=== PATIENT | female | born 1950 | race Caucasian/White ===

== ENCOUNTER → 2018-05-09 10:36 | Outpatient (CLI) | payer MEDICARE, OTHER, SELFPAY ==
--- NOTE | 2018-05-09 | DI.CT.S_ITS ---
PROCEDURE: CT LE LT WO/W CON INDICATIONS: SPRAIN OF OTHER LIGAMENT OF LEFT ANKLE TECHNIQUE: After the administration of intravenous contrast, 3 mm axial sections acquired of the left ankle, with coronal and sagittal reformats. COMPARISON: [facility], CR, XR ANKLE 3+ VIEWS LEFT, 04/13/2018, 20:28. [facility], CR, XR FOOT 3+ VIEWS LEFT, 04/17/2018, 17:08. [facility], CR, XR ANKLE 3 VIEWS WEIGHT BEARING LEFT, 04/17/2018, 17:10. FINDINGS: Image quality: Excellent. Bones: Examination of left ankle osseous structures shows small avulsion fracture involving posterior lateral corner of the distal medial malleolus with tiny displaced bony fragment. There is also likely avulsion fracture involving anterolateral periphery of distal lateral malleolus with anteriorly displaced bony fragment. Avulsion injury involving dorsal and lateral aspect of anterior talus is seen adjacent to the talonavicular joint with small dorsally displaced fragment. Avulsion injury involving medial cortex of the mid to posterior talus is seen adjacent to the posterior subtalar joint with posterior and laterally medially displaced bony fragments. There is also suggestion of small avulsion fracture involving inferior lateral corner of proximal navicular bone near its articulation with calcaneus. Small bony fragment is also seen adjacent to inferior lateral aspect of proximal cuboid adjacent to the calcaneocuboid joint, suggestive of age indeterminate avulsion injury. No other fracture or dislocation is seen. Mild osteoarthritic changes throughout the ankle and hindfoot joints are seen. A well-defined plantar calcaneal enthesophyte is noted. No gross bone erosive changes are noted. Soft tissues: There is significant subcutaneous soft tissue edema and swelling around ankle joint and extending to predominantly dorsal and lateral aspect of mid foot and hindfoot. There is suggestion of a moderate amount of joint effusion within tibiotalar joint. Ill-defined lobulated fluid collection anterolateral to the ankle joint and extending to lateral aspect of distal fibular shaft is seen with mild peripheral contrast enhancement and measures up to 5.9 x 1.8 x 9.3 cm in its largest AP, transverse and craniocaudal dimensions, concerning for abscess collection in anterolateral ankle soft tissue. Septic joint cannot be excluded as this fluid collection is seen possibly communicating with tibiotalar joint space. Plantar fascia is grossly intact. Extensor, flexor, peroneus and Achilles tendon are grossly intact with no evidence of full-thickness rupture. Evaluation of ankle ligaments are limited on this CT study. No significant widening of distal tibial fibula syndesmosis is seen. IMPRESSION: 1. Multiple age-indeterminate small avulsion fractures involving medial malleolus, lateral malleolus, anterior aspect of talus, medial cortex of talus, inferior lateral corner of proximal navicular bone, as well as inferior lateral aspect of proximal cuboid bone. 2. Moderate amount of joint effusion. Soft tissue swelling around ankle, hindfoot and midfoot predominantly over the anterior lateral aspect of ankle joint and dorsal lateral aspect of mid foot and hindfoot. No defined peripherally enhancing fluid collection anterior lateral to ankle joint and measures approximately 5.9 x 1.8 x 9.3 cm in size with possible communication to the tibiotalar joint. Finding is concerning for cellulitis with subcutaneous soft tissue abscess collection and possible septic joint. No definite bony erosive changes are noted at this time to suggest osteomyelitis. 3. No full-thickness ankle tendon rupture. Ankle ligament evaluation is limited due to CT technique. No widening of distal tibiofibular syndesmosis. Dictated by: Isaías Bee M.D. on 05/10/2018 at 9:54 Approved by: Isaías Bee M.D. on 05/10/2018 at 10:27
== END ==
PROVIDERS: Visit Provider Orthopaedic Surgery Foot and Ankle Surgery
DX: S82.842A Displaced bimalleolar fracture of left lower leg, initial encounter for closed fracture (principal); S93.492A Sprain of other ligament of left ankle, initial encounter; M25.472 Effusion, left ankle; S92.152A Displaced avulsion fracture (chip fracture) of left talus, initial encounter for closed fracture; S92.252A Displaced fracture of navicular [scaphoid] of left foot, initial encounter for closed fracture; S92.212A Displaced fracture of cuboid bone of left foot, initial encounter for closed fracture
CPT/HCPCS: 73702; Q9967

== ENCOUNTER 2018-05-11 09:12 | Day surgery (SDC) | payer MEDICARE, OTHER, SELFPAY ==
[2018-05-11] VITALS (15 sets, daily range): BP systolic 114–154; BP diastolic 42–85; PULSE 63–88; RESP 9–18; TEMP 36.2–36.7; O2SAT 96–100; BMI 41.8; BMI 41.7
--- NOTE | 2018-05-11 10:56 | PM.PREOP ---
Pre-operative Note Interval Note History & Physical reviewed/Exam performed by Physician: Yes Changes to H&P: No
--- NOTE | 2018-05-11 11:01 | P.OP_ITS ---
Operative Date/Time/Diagnoses Date of procedure: 05/11/18 Time of procedure: 11:15 Pre-op diagnosis: 1. Abscess of bursa, left ankle and foot icd: M71.072 2. Sprain ligament left ankle, subsequent encounter, ICD S93.492D 3. Sprain deltoid ligament left ankle subsequent encounter S93.422D 4. Nondisplaced fracture lateral malleolus left fibula ICD S82.65XD Post-op diagnosis: other (Infected hematoma left ankle) Procedure & Clinicians Procedure: 1. Incision and drainage, abscess, ankle, deep, left CPT code 28603 Same procedure as scheduled: Yes Indications: Patient is a 67-year-old female that sustained a complex ankle sprain several weeks ago. She had a medial and lateral ankle sprain with severe soft tissue injury resulting in multiple hemorrhagic and serous fracture blisters. She is on Coumadin for paroxysmal atrial fibrillation and her INR at the time of injury was approximately 4. She underwent immobilization and wound care and her fracture blisters resolved nicely. She continued to have some swelling at her anterior lateral ankle and then later developed cellulitis this improved on oral antibiotics there continued to be swelling at the anterior lateral ankle and a superficial ulceration forming. There is no draining pus but the collection was suspicious for hematoma versus abscess or infected hematoma. A CT scan with and without contrast demonstrated a fluid collection in the anterior lateral ankle suspicious for abscess or hematoma. The patient was indicated for incision and drainage the hematoma for decompression cultures and wound healing. Risks benefits and alternatives to the procedure were discussed with the patient and her partner in detail. These included but were not limited to infection, wound healing problems, need for additional procedures , need for antibiotics, DVT, PE, cardiac or pulmonary problems with general anesthesia and/or . Informed consent was obtained and signed in the office. Surgeon: Jada Hall Click Yes if Unassisted: Yes Anesthesia Type: General and Local Operative Notes Findings: Approximately 2 x 2 cm superficial ulceration over the anterior lateral ankle and a small 0.5 cm eschar just distal to this. Directly underneath of the ulceration and encompassing the anterior lateral ankle was a fluctuant area with a faint cellulitis. There was no tracking cellulitis or crepitus or sinus tract. An approximately 6 cm incision was made from proximal posterior to distal anterior over the distal fibula toward the 4th metatarsal base. This was directed just posterior to the ulceration to avoid this compromised tissue. Upon incision old hematoma was immediately evacuated. This was sent for culture and Gram stain. There was no gross purulence or malodor. The hematoma was localized over the anterior lateral ankle without proximal or distal tracking or tunneling. Once this was washed out and was closed over a Hemovac drain. Closure Type: primary Specimen(s): other (Left ankle hematoma for Gram stain and culture) Implants & Drains: Medium Hemovac drain Applied: other (Soft dressing) Estimated Blood Loss (mL): 25 Tourniquet time (min): 6 Procedure in detail: Patient was seen in the preoperative area her site of surgery marked and informed consent confirmed. Patient was then brought to the operating room by the anesthesia team and placed supine on the table. General anesthesia was administered. Left lower extremity was prepped and draped in the standard sterile fashion a contralateral SCD was in place. A well-padded thigh tourniquet was placed. A formal time-out procedure was performed confirming the patient's side and site of surgery and presence of informed consent. The patient did receive 1 g of vancomycin. She had been on previous oral antibiotics as well. All were in agreement. The left lower extremity was elevated for gravity exsanguination and the thigh tourniquet raised to 250 mm of mercury and stayed there for 6 min. Attention was turned to the left ankle. The anterior lateral ankle was swollen with the superficial ulceration placed. A approximately 6 cm incision was made just posterior to this extending from the distal fibula towards the 4th metatarsal. Sharp incision was taken down through the skin and subcutaneous tissue carefully. This opened directly onto a hematoma which was evacuated and cultures were sent. The hematoma was evacuated and the wound was irrigated with 3 L of saline. There was no gross purulence found. No malodor. Visualization and palpation there did not appear to be any communication with the ankle joint which is consistent with the patient's painless ankle range of motion preoperatively. A tourniquet was then released. Decision was made to place a Hemovac drain to avoid reaccumulation of the hematoma. A medium Hemovac was then placed and secured to the skin with a Tegaderm. The wound was closed in layers with 2 O PDS subcutaneously and 3 O nylon in the skin. Sterile dressing was placed with Xeroform gauze and Kerlix. All counts were correct. The patient was then woken from anesthesia and taken to the recovery room in good condition. There no immediate complications from this procedure. Complications: none Condition: stable Disposition: PACU Plan for aftercare: Patient will be placed in observation overnight for IV antibiotics while we await the wound cultures. Did discuss that the patient had received antibiotics over the last few weeks and therefore the cultures may not grow any specific organism, therefore after 2 doses of the of vancomycin unless another organism grows we would intend to send her out on 2 weeks of Bactrim double strength twice daily, which is what her cellulitis appeared to respond to earlier in the treatment course. The plan would be to keep the Hemovac in overnight and removed just prior to discharge tomorrow. She will restart her 5 mg warfarin tonight. She may be partial weight-bearing on the leg in a the boot --approximately 25%BW. She will continue with wound care for the ulceration that treatment and will just have dry dressing changes to her surgical incision. She will return to clinic in approximately 2 weeks for suture inspection possible removal.
[2018-05-11] MEDS: LACTATED RINGERS 1,000 ML 42 ML IV ×2 (11:09→14:14)
[2018-05-11] MEDS: VANCOMYCIN 1,000 MG/200 ML FROZ.PIGGY 200 MG IV ×2 (11:23→22:41)
[2018-05-11 11:28] LABS: Add Manual Diff / Slide Review NO; Basophils Percent Auto 1.2 % (0-2); Hematocrit 39.2 % (36-46); Hemoglobin 12.8 g/dL (12.0-16.0); Lymphocytes Percent Auto 28.4 % (25-40); Mean Corpuscular HGB Conc 32.8 % (30-36); Mean Corpuscular Hemoglobin 29.4 PG (26-34); Mean Corpuscular Volume 89.8 fL (80-100); Monocytes Percent Auto 11.9 % (3-14); Neutrophils Absolute Auto 2000 /uL (1500-7000); Neutrophils Percent Auto 57.5 % (50-75); Platelet Count 180 X10^3/uL (150-400); Red Blood Cell Count 4.36 X10^6/uL (4.0-5.2); Red Cell Distribution Width 15.4 % (11.6-14.8); White Blood Cell Count 3.4 X10^3/uL (4.5-11.0)
[2018-05-11 11:39] LABS: C-Reactive Protein Quant 0.5 mg/dL (<1.0)
[2018-05-11 11:42] LABS: Erythrocyte Sedimentation Rate 16 MM/HR (0-20)
--- NOTE | 2018-05-11 12:01 | SUR.OPER ---
Supine on padded OR bed, head on pillow, arms secured on padded arm boards at <90 degrees abduction, legs uncrossed, safety belt at thigh, tape over blanket over non operative legs. operative leg draped free.
[2018-05-11] MEDS: BUPIVACAINE 0.25% W/ EPI VIAL 50 ML INJ (12:03)
[2018-05-11] MEDS: fentaNYL 100 MCG/2 ML INJ 50 MCG IV ×4 (12:30→13:01)
--- NOTE | 2018-05-11 12:49 | SUR.PHASEI ---
Inr checked in pacu per Dr. Hall. INR 1.8. Dr. Hall notified.
--- NOTE | 2018-05-11 13:19 | SUR.PHASEI ---
Report called to JESSICA Thompson
[2018-05-11] MEDS: MORPHINE 2 MG/ML INJ 1.5 MG IV ×2 (13:55→16:06)
[2018-05-11] MEDS: OXYCODONE IR 5 MG TABLET PO ×4 (14:27→23:43)
--- NOTE | 2018-05-11 14:29 | SUR.PHASEI ---
Pt transferred to the floor, Report to Sam. VS stable. Boot in place. Belongings bag and glasses with patient. J-loop attached to IV, IV drsg changed. Call light within reach.
--- NOTE | 2018-05-11 14:29 | PC.NURSE ---
Pt admitted to floor around 130. Her is present and visiting in room. Pt has an yu wrap with hemovac that is putting out bloody drainage. Given 1.5mg of morphine and not effective for pain. Pt just given 5mg of oxycodone and she is resting. LR infusing through iv.
[2018-05-11] MEDS: ACETAMINOPHEN 325 MG TABLET 975 MG PO ×2 (14:53→20:23)
--- NOTE | 2018-05-11 16:10 | P.PN_ITS ---
Subjective Date Patient Seen: 05/11/18 Time Patient Seen: 16:05 Interval history: Postop day 0 left ankle infected hematoma evacuation. Exam Vital Signs (past 8 hours): - 05/11/18 10:53 05/11/18 12:24 05/11/18 12:29 Temperature 98.0 F 97.7 F Pulse Rate 72 85 75 Respiratory Rate 16 15 10 L Blood Pressure 136/66 131/72 140/75 Pulse Oximetry 98 98 99 05/11/18 12:34 05/11/18 12:39 05/11/18 12:54 Temperature Pulse Rate 69 69 69 Respiratory Rate 13 13 11 L Blood Pressure 147/78 H 143/75 H 131/71 Pulse Oximetry 96 96 97 05/11/18 13:10 05/11/18 13:19 05/11/18 13:30 Temperature 97.4 F L 97.1 F L Pulse Rate 66 66 73 Respiratory Rate 10 L 9 L 16 Blood Pressure 154/80 H 154/85 H 148/67 H Pulse Oximetry 96 97 100 05/11/18 14:00 05/11/18 14:30 Temperature Pulse Rate 63 63 Respiratory Rate 16 16 Blood Pressure 132/66 137/42 L Pulse Oximetry 100 98 Oxygen Delivery Method Room Air Oxygen Flow Rate 0 Objective Labs Result Diagrams: 05/11/18 11:17 Labs: Laboratory Results - last 24 hr 05/11/18 05/11/18 11:17 11:17 WBC 3.4 L RBC 4.36 Hgb 12.8 Hct 39.2 MCV 89.8 MCH 29.4 MCHC 32.8 RDW 15.4 H Plt Count 180 Neut % (Auto) 57.5 Lymph % (Auto) 28.4 [place] % (Auto) 11.9 Eos % (Auto) 1.0 L Baso % (Auto) 1.2 Neut # (Auto) 2000 ESR 16 C-Reactive Protein 0.5 Assessment & Plan (1) Traumatic hematoma of left lower leg with infection: Current visit: Yes Status: Acute (2) Sprain of ankle, left: Current visit: Yes Status: Acute Plan: Assessment/Plan Narrative: Patient had a severe left ankle sprain with multiple fracture blisters. Patient developed cellulitis and a presumably infected hematoma of the anterior lateral left ankle. Hematoma was drained in the operating room and washed out on 05/11/2018. Incision was closed over Hemovac drain. Plan: Partial weight-bearing no more than 25% in boot Keep incision dry. Patient will continue scheduled wound care--with Selene Springer for left ankle ulceration. May place new clean dressing to surgical incision with these changes. -Pull Hemovac drain on postop day 1 prior to discharge. -plan at discharge postop day 1 after a.m. vancomycin dose -discharged with Bactrim--see prescription on chart --discharged with Percocet--See prescription on chart -patient will resume home dosing of warfarin--patient and partner have been counseled on daily INR checks to monitor warfarin while on Bactrim. -follow-up has been scheduled at [facility] with Dr. Hall -early Gram stain cultures without growth--will plan discharge with Bactrim postop day 1 unless cultures come back with resistant organism. Do not need to hold discharge until final cultures. Quality VTE Deep Vein Thrombosis/Pulmonary Embolism Present on Admission: No
[2018-05-11] MEDS: WARFARIN 5 MG TABLET PO (17:29)
--- NOTE | 2018-05-11 18:05 | PT.IIE ---
Current Diagnoses Local infection of the skin and subcutaneous tissue, unspecified (05/11/18) Abscess of bursa, left ankle and foot (05/11/18) Contusion of left lower leg, initial encounter (05/11/18) Nondisplaced fracture of lateral malleolus of left fibula, subsequent encounter for closed fracture with routine healing (05/11/18) Sprain of unspecified ligament of left ankle, initial encounter (05/11/18) Sprain of deltoid ligament of left ankle, subsequent encounter (05/11/18) Sprain of other ligament of left ankle, subsequent encounter (05/11/18) Surgery Performed Operation Date: 05/11/18 10:45 Actual Procedures p I&D ankle abscess(Left) - Jada Hall MD Medical History (Last Updated 05/11/18 @ 08:26 by Estrella Drake RN) Abscess of bursa, left ankle and foot (Acute) Cellulitis (Acute) Nondisplaced fracture of lateral malleolus of left fibula (Acute) Paroxysmal A-fib (Acute) Sprain of deltoid ligament of left ankle (Acute) Sprain of other ligament of left ankle, subsequent encounter (Acute) Ulceration (Acute ~05/10/18) Physical Therapy Inpatient Evaluation/Re-Eval M1 PT/OT-IP Prior Functional Status Start: 05/11/18 17:25 Freq: NEEDED Status: Active Protocol: Document 05/11/18 16:00 (Rec: 05/11/18 18:05 [email or web address]) Medical Review Prior Functional Status Medical History Reviewed Yes Communication No deficits noted Mobility and Gait Pt was an independent ambulator at home and community without AD prior to injury. Pt then used w/c for home and community mobility and able to transfer herself to chair with stand pivot and counter/grab bar independently . She also report she has difficulty sit to stand from a lower chair since injury who requires to use counter for extra support. Activities of Daily Living and IADL's Pt was independent for all ADLs and IADLs prior to injury . However, pt's partner states pt used w/c, commode, and shower chair for her ADLs and she only need help sometimes for showering. Social History Household Members spouse Living Arrangements House Number of Floors (Floors) Two Floors Number of Stairs To Enter/Railing? Ramp stair in house to get to second floor. But pt stays on main floor at all times. Home Environment Standard Height Toilet Home Equipment Front Wheel Walker Four Wheel Walker Crutches Manual Wheelchair Bedside Commode Raised Toilet Seat w/Armrests Shower Seat without Backrest Employment Status Retired Additional Social History Comment Pt lives with her partner at a 2 story home with a RAMP to enter. Pt stays on main floor with access to all her basic needs. Pt's partner works as a radio time salesperson RN in ICU who was her primary daycare manager since injury. She states pt was able to live independently at home while she was at work since their home is well equipped with assistive devices. Pt was also very active prior to injury that she usually goes to her water aerobic and jones dancing class during the week . M2 PT-IP Current Condition Start: 05/11/18 17:25 Freq: NEEDED Status: Active Protocol: Document 05/11/18 16:00 (Rec: 05/11/18 18:05 [email or web address]) Physical Therapy Current Condition Current Condition Evaluation Date 05/11/18 Treatment Diagnosis Postop day 0 left ankle infected hematoma evacuation, difficulty in walking Onset Date 05/11/18 Precautions Brace walker boot with hemovac Weight Bearing Status Weight Bearing Status Partial Weight Bearing Allowed Weight Bearing Amount (enter % up to 25 % or #) (%) M3 PT-IP Subjective Start: 05/11/18 17:25 Freq: NEEDED Status: Active Protocol: Document 05/11/18 16:00 (Rec: 05/11/18 18:05 [email or web address]) Subjective Physical Therapy Visit Type Type Initial Evaluation Visit Start Time 16:00 Visit Stop Time 16:50 Total Visit Minutes 50 Notes Pt agreeable to mobilize with PT. Pt's partner at bedside. Pt c/o 5/10 pain at L foot. Number of WINDOWS 7 DEPLOYMENT LEAD Visits 0 Physical Therapy Visit Comments Patient Comments Im not sure if i could hop with the walker. Patient Goals To understand how to hop with walker prior to d/c to return home and get home health for overall strengthening Therapy Pain Assessment Pain When Pain Assessed At Rest Pain Present Pain Present Pain Reported Location Left Foot Intensity 5 Scale Used Numeric (1 - 10) Description Aching Pain Management Techniques Timing of Activity with Medications M4 PT-IP Mobility and Gait Start: 05/11/18 17:25 Freq: NEEDED Status: Active Protocol: Document 05/11/18 16:00 (Rec: 05/11/18 18:05 [email or web address]) PT-Bed Mobility Assessment Supine to Sit Supine to Sit Minimal Assistance 1 Person Assistance Head of Bed Elevated Bedrails Sit to Supine Sit to Supine Minimal Assistance 1 Person Assistance Head of Bed Elevated Bedrails Scooting Scooting to Edge of Bed Standby Assistance Scooting Up and Down in Bed Standby Assistance PT-Transfer Assessment Sit to and From Stand Sit to and from Stand Contact Guard Assistance 1 Person Assistance Use of Upper Extremities Equipment Transfer Assistive Device Bed Rail Gait Belt Front Wheeled Walker Orthotic/Prosthetic Devices or Brace: Yes Transfers Transfer Destination Bed Bedside Commode Transfer Technique Stand Pivot Transfer Ability Level of Assist Contact Guard Assistance 1 Person Assistance Comments Mobility Comments pre transfer BP = 127/57 HR 75 post transfer BP 128/63 HR 88 Pt performed supine to sit at EOB with min A on R UE to pivot. She then transferred herself from EOB to bedside commode (her R side) with CGA 1pa FWW. Pt requires mod cues to use stagger stance to avoid excessive WB on L foot. Pt refused to transfer to bedside chair due to its lowered seat level. Pt then transferred from commode back to bed with her partner who demonstrated safe stand pivot transfer. Gait Assessment Gait Gait Assistance Required: Contact Guard Assist Distance (Feet) 10 Able to Maintain Weight Bearing Status Yes During Gait Assistive Devices Assistive Device Gait Belt Standard Walker Orthotic/Prosthetic Devices or Brace: Yes Gait Deviations General Gait Pattern Decreased Stride Length Decreased Feet Clearance Factors Limiting Gait Function Factors Limiting Gait Function Decreased Activity Tolerance Decreased Strength Incoordination Limited Range of Motion Pain Comments Gait Comments Pt and CG education on hopping with FWW prior to amb. Pt then amb from EOB to the other side of the bed with CGA and max cues to propel FWW first before hopping. Pt had to rest at standing after 5 feet due to fatigue on the R LE but she was able to cont and return to bed with CGA 1pa. Pt did not appear signs of acute distress and LOB. Pt requested to sit EOB for dinner. call light within reach Stair Climbing Assessment Comments Stair Climbing Comments did not attempt PT-Balance Assessment Sitting Balance and Reactions Static Sitting Balance Ability Normal Dynamic Sitting Balance Ability Normal Standing Balance and Reactions Static Standing Balance Ability Good Dynamic Standing Balance Ability Good M5 PT-IP Objective Assessments Start: 05/11/18 17:25 Freq: NEEDED Status: Active Protocol: Document 05/11/18 16:00 (Rec: 05/11/18 18:05 [email or web address]) Orientation Orientation/Cognition Level of Alertness Alert Orientation Name Age Birthday Month Date Year Day of Week Place Situation Language Function Ability No Deficits Noted Safety Awareness Understands Safety Issues Memory Description No Deficits Noted Gross Range of Motion Upper Extremity ROM Assessment Within Functional Limits Lower Extremity ROM Assessment Left Impaired Impairments with walker boot Strength Upper Extremity Strength Assessment Within Functional Limits Lower Extremity Strength Assessment Left Impaired Coordination Assessment Gross Coordination Gross Coordination WNL Sensation Assessment Sensation Gross Sensation WNL Muscle Tone Muscle Tone WNL Yes M6 PT-IP Treatment Start: 05/11/18 17:25 Freq: NEEDED Status: Active Protocol: Document 05/11/18 16:00 HH (Rec: 05/11/18 18:05 [email or web address]) Physical Therapy Treatment Exercises Exercises Gluteal Sets Quad Sets Straight Leg Raises Education Education Provided Precautions Weight Bearing Status Post-Op Packet Safety M7 PT-IP Assessment and Plan Start: 05/11/18 17:25 Freq: NEEDED Status: Active Protocol: Document 05/11/18 16:00 (Rec: 05/11/18 18:05 [email or web address]) PT Summary Assessment and Plan Potential Rehabilitation Potential Excellent Status of Condition at Evaluation Stable Summary Impairments Strength Bed Mobility Transfers Gait Activity Tolerance Assessment Summary Pt is a pleasant 67 yo female Postop day 0 left ankle infected hematoma evacuation. Pt's partner at bedside upon assessment who is very supportive and cont to be her primary CG. Pt and her partner both demonstrate a good understanding transfer techniques with different assistive device during tx session today. Pt is also able to amb with FWW with a hopping pattern. However, pt does show insufficient activity tolerance to primarily WB on her UEs and R LE during mobility. In my professional opinion, pt will benefit from receiving Home Health to cont improve her overall functional mobility and strength. Goals Bed Mobility Goal Independent Transfer Goal Independent Front Wheeled Walker Gait Goal Contact Guard Assistance Front Wheel Walker Gait Distance 30 Days to Meet Goals 3 Frequency of Treatment Frequency Of Treatment Twice a Day Treatment Plan Physical Therapy Treatment Plan Bed Mobility Training Transfer Training Gait Training Therapeutic Exercise Balance Retraining Post Op Education Discharge Planning Hot or Cold Pack Other Recommendations and Next Treatment educate pt and CG for her PWB Focus status again (25%) check wheelchair transfer to commode and chair bed mob, transfer and gait training as tolerated Recommendations To Nursing Amount of Assist Needed 1 Person Assist Discharge Recommendations PT Discharge Recommendations Home Home Health
[2018-05-11] MEDS: DOCUSATE 100 MG CAPSULE PO (20:23)
[2018-05-11] MEDS: FLECAINIDE 100 MG TABLET 50 MG PO (20:24)
[2018-05-11] MEDS: GABAPENTIN 300 MG CAPSULE PO (20:24)
[2018-05-12] MEDS: MORPHINE 2 MG/ML INJ 1.5 MG IV ×3 (01:45→06:28)
[2018-05-12] MEDS: OXYCODONE IR 5 MG TABLET PO ×3 (03:17→12:25)
[2018-05-12 03:30] VITALS: BP 108/62; PULSE 67; RESP 18; TEMP 36.4; O2SAT 94
[2018-05-12 05:36] LABS: Hematocrit 34.1 % (36-46); Hemoglobin 11.3 g/dL (12.0-16.0); Mean Corpuscular HGB Conc 33.2 % (30-36); Mean Corpuscular Volume 90.4 fL (80-100); Platelet Count 146 X10^3/uL (150-400); Red Blood Cell Count 3.77 X10^6/uL (4.0-5.2); Red Cell Distribution Width 14.9 % (11.6-14.8); White Blood Cell Count 4.2 X10^3/uL (4.5-11.0)
[2018-05-12 05:37] LABS: Prothrombin Time 22.7 SECONDS (10.1-12.7)
[2018-05-12 07:20] VITALS: BP 125/53; PULSE 63; RESP 16; TEMP 36.5; O2SAT 95
[2018-05-12] MEDS: DOCUSATE 100 MG CAPSULE PO (08:27)
[2018-05-12] MEDS: ACETAMINOPHEN 325 MG TABLET 975 MG PO (08:28)
[2018-05-12] MEDS: FLECAINIDE 100 MG TABLET 50 MG PO (08:28)
--- NOTE | 2018-05-12 09:52 | PC.NURSE ---
Addendum entered by Jasmine Collins R.N. 05/12/18 10:28: Pt up to shower, gait steady. Back to bed sitting at edge, c/o nausea. Given 4mg oral zofran. Original Note: Boot and dressing removed with VINCENT Reed. No drainage or redness noted. Hemovac removed, incision covered with two 4x4's and wrapped with kerlex and yu. Boot placed back on. Pt up to shower.
[2018-05-12] MEDS: VANCOMYCIN 1,000 MG/200 ML FROZ.PIGGY 200 MG IV (10:10)
[2018-05-12] MEDS: ONDANSETRON 4 MG ODT PO (10:26)
--- NOTE | 2018-05-12 10:27 | PM.DS.1 ---
History of Present Illness Date Patient Seen: 05/12/18 Time Patient Seen: 10:28 Chief complaint: ankle [id number] Narrative: Hospital day 2, postop day 1 following left ankle I and D of hematoma and abscess by Dr. Hall. Patient able to rest off and on during the night. Pain controlled with oxycodone. G stain from the wound noted no organisms and occasional WBC. Culture is still pending. Patient is on her 2nd dose of vancomycin this morning. Plan is to discharge home on Bactrim DS b.i.d. x2 weeks. She is going to [facility] for wound care of her ankle. She does have Hemovac in place which was to be DC today. She has been seen by physical therapy. She is to be partial weight-bearing 25% to the left leg wearing boot x2 weeks. Discharge Providers Consults: 05/11/18 13:44 Consult to Discharge Planning Routine Comment: Plan DC home tomorrow after a.m. vancomycin dose Consult to Physical Therapy Evaluate & Treat Comment: Physician Instructions: Evaluate and Treat Consult to Respiratory Therapy Evaluate & Treat Comment: Physician Instructions: Evaluate and treat Discharge provider: Madi Reed PA-C Discharge Date: 05/12/18 Summary Discharge Diagnosis: Status post left ankle I and D Hospital Course: Patient brought to hospital on 03/01/2019 for above noted surgery. She remained stable overnight. Hemovac was discontinued on postop day 1 and dressing changed. She was discharged home on postop day 1. Status at Discharge Cognitive/behavioral status at discharge: Alert, oriented no acute distress. Functional status at discharge: uses cane/walker Overall status at discharge: other (Limit weight-bearing to left leg 25% in boot.) Time Spent with Patient Less than 30 minutes Exam Vital Signs (past 8 hours): - 05/12/18 03:30 05/12/18 07:20 Temperature 97.6 F 97.7 F Pulse Rate 67 63 Respiratory Rate 18 16 Blood Pressure 108/62 125/53 L Pulse Oximetry 94 95 Oxygen Delivery Method Room Air Oxygen Flow Rate 0 Narrative Exam Narrative: Left leg. Boot and dressing removed. No signs of infection or inflammation or swelling. Good pulses and sensation to her foot. Hemovac drain was DC and Tegaderm dressing placed. Xeroform gauze was left in place to the exterior wound and dry gauze dressing applied. Placed back in her boot. Objective Labs Result Diagrams: 05/12/18 05:16 Labs: Laboratory Results - last 24 hr 05/11/18 05/11/18 05/12/18 11:17 11:17 05:16 WBC 3.4 L 4.2 L RBC 4.36 3.77 L Hgb 12.8 11.3 L Hct 39.2 34.1 L MCV 89.8 90.4 MCH 29.4 30.0 MCHC 32.8 33.2 RDW 15.4 H 14.9 H Plt Count 180 146 L Neut % (Auto) 57.5 Lymph % (Auto) 28.4 Sharkey % (Auto) 11.9 Eos % (Auto) 1.0 L Baso % (Auto) 1.2 Neut # (Auto) 2000 ESR 16 PT INR C-Reactive Protein 0.5 05/12/18 05:16 WBC RBC Hgb Hct MCV MCH MCHC RDW Plt Count Neut % (Auto) Lymph % (Auto) Sharkey % (Auto) Eos % (Auto) Baso % (Auto) Neut # (Auto) ESR PT 22.7 H INR 2.0 H C-Reactive Protein Discharge Plan Discharge Plan Patient Disposition: Home Discharge comment: Patient will be limited weight-bearing left leg 25% and walking boot. Continue with wound care at [facility]. Keep left ankle area clean and dry. Discharge Med Rec/Prescriptions Prescriptions: New sulfamethoxazole-trimethoprim [Bactrim DS] 800-160 mg tablet 1 tab PO BID Qty: 28 RF: 0 oxycodone-acetaminophen [Percocet] 5-325 mg tablet 1 tab PO Q4H PRN (Reason: pain) Qty: 30 RF: 0 acetaminophen 325 mg Tablet 975 mg PO TID Qty: 30 RF: 0 docusate sodium 100 mg Capsule 100 mg PO BID Qty: 30 RF: 0 ondansetron 4 mg Tablet,Disintegrating 4 mg PO Q4HR PRN (Reason: Nausea And Vomiting) Qty: 6 RF: 0 warfarin [Coumadin] 5 mg Tablet 5 mg PO 1700 Qty: 30 RF: 0 Continue flecainide 50 mg Tablet 50 mg PO Q12H RF: 0 gabapentin 300 mg Capsule 300 mg PO BEDTIME RF: 0 Changed warfarin 10 mg Tablet 5 mg PO DAILY Qty: 0 RF: 0 Discontinued sulfamethoxazole-trimethoprim [Bactrim DS] 800-160 mg Tablet 1 tab PO Q12H RF: 0 oxycodone-acetaminophen [Percocet] 5-325 mg Tablet 1 tab PO Q4H PRN (Reason: Pain) RF: 0 cephalexin [Keflex] 500 mg Capsule 500 mg PO Q6H PRN (Reason: Cellulitis) RF: 0 No Action MediHoney (shaina alginate-honey) RF: 0 Follow up/Referrals: Jada Hall MD [Physician] - (05/17/2018 10:[address]) Discharge Orders: Discharge (Order); Ordered 05/12/18 Ordered By: Madi Reed Provider Discharge Instructions Diet: Diet as Tolerated Activity: Partial weight-bearing up to 25% in boot. Gentle ankle range of motion out of boot 3 times a day. Keep incision dry and covered-- Skin/Wound/Dressing Care Report to your healthcare provider any signs of infection, such as:: chills, fever, night sweats, increased pain, unusual drainage and unusual redness Other wound treatment: Keep incision dry and covered. May change dressing as needed for wound care. Patient to continued standard wound care with Jeremy for ulceration Visit Report/Discharge Packet Stand Alone Forms: Surgery Discharge Discharge Data Attending Provider: Jada Hall Quality VTE Deep Vein Thrombosis/Pulmonary Embolism Present on Admission: No
[2018-05-12 11:41] VITALS: BP 128/63; PULSE 75; RESP 16; TEMP 36.6; O2SAT 97
--- NOTE | 2018-05-12 11:52 | PT.IPTN ---
Current Diagnoses Local infection of the skin and subcutaneous tissue, unspecified (05/11/18) Abscess of bursa, left ankle and foot (05/11/18) Contusion of left lower leg, initial encounter (05/11/18) Nondisplaced fracture of lateral malleolus of left fibula, subsequent encounter for closed fracture with routine healing (05/11/18) Sprain of unspecified ligament of left ankle, initial encounter (05/11/18) Sprain of deltoid ligament of left ankle, subsequent encounter (05/11/18) Sprain of other ligament of left ankle, subsequent encounter (05/11/18) Surgery Performed Operation Date: 05/11/18 10:45 Actual Procedures p I&D ankle abscess(Left) - Jada Hall MD Physical Therapy Treatment Note M2 PT-IP Current Condition Start: 05/11/18 17:25 Freq: NEEDED Status: Active Protocol: Document 05/11/18 16:00 (Rec: 05/11/18 18:05 [id number]) Physical Therapy Current Condition Current Condition Evaluation Date 05/11/18 Treatment Diagnosis Postop day 0 left ankle infected hematoma evacuation, difficulty in walking Onset Date 05/11/18 Precautions Brace walker boot with hemovac Weight Bearing Status Weight Bearing Status Partial Weight Bearing Allowed Weight Bearing Amount (enter % up to 25 % or #) (%) M3 PT-IP Subjective Start: 05/11/18 17:25 Freq: NEEDED Status: Active Protocol: Document 05/12/18 10:05 [email or web address] (Rec: 05/12/18 11:52 [email or web address] [id number]) Subjective Physical Therapy Visit Type Type Patient Refusal Notes Pt refused states that she just finished with a shower and D/C home today. She states no need for PT. Recommendations To Nursing Amount of Assist Needed 1 Person Assist Discharge Recommendations PT Discharge Recommendations Home Home Health
== END 2018-05-12 13:03 | disposition home or self-care (01) ==
LOC: OR 13:11 → AC 13:37
PROVIDERS: Visit Provider Orthopaedic Surgery Foot and Ankle Surgery
PROC: (CPT 27603; principal; 2018-05-11 10:45)
DX: L76.32 Postprocedural hematoma of skin and subcutaneous tissue following other procedure (principal); L97.321 Non-pressure chronic ulcer of left ankle limited to breakdown of skin; I48.0 Paroxysmal atrial fibrillation; Z79.01 Long term (current) use of anticoagulants
CPT/HCPCS: 27603; 36415; 85025; 85027; 85610; 85651; 86140; 87070; 87205; 97162; 97530; J2270; J2405; J2704; J3010; J3370

== ENCOUNTER 2022-06-03 10:20 | Day surgery (SDC) | payer MEDICARE, OTHER, SELFPAY ==
[2018-05-11 13:57] VITALS: BMI 41.7
[2022-06-02 15:02] VITALS: BMI 35.2
[2022-06-03] VITALS (8 sets, daily range): BP systolic 125–143; BP diastolic 46–69; PULSE 60–80; RESP 9–16; TEMP 35.7–36.1; O2SAT 95–100; BMI 37.5
--- NOTE | 2022-06-03 | PATH_ITS ---
[facility] Accession Number: [id number] No. of containers..02 Tissue . 01 Material submitted: . PART A: endometrium - ENDOMETRIAL CURETTINGS PART B: endocervix - ENDOCERVICAL CURETTINGS . 01 Diagnosis: A. Endometrium, Curettage: Superficial strips of endometrial epithelium; please see comment. Strips of endocervical epithelium with no diagnostic abnormality. No evidence of atypical hyperplasia or malignancy. . B. Endocervix, Curettage: Strips of endocervical epithelium with no diagnostic abnormality. No evidence of squamous intraepithelial lesion or malignancy. V 06/08/2022 1835 Local . 01 Comment: A. The findings in the endometrial biopsy are suggestive of endometrial atrophy. . B. The findings in the endocervical curettage correlate with recent cervical cytology ([id number], 2021). . 01 Electronically signed: . oP Nettles MD, PhD, Pathologist NPI- [id number] . 01 Gross description: . Part A: ENDOMETRIAL CURETTINGS: Received in formalin are minute fragments of mucoid and hemorrhagic material measuring 2.7 x 1.2 x 0.1 cm in aggregate. Submitted in toto in 1 cassette. Part B: ENDOCERVICAL CURETTINGS: Received in formalin are minute fragments of mucoid and hemorrhagic material measuring 2.0 x 1.8 x 0.1 cm in aggregate. Submitted in toto in 1 cassette. /CPE 06/04/2022 1006 Local . 01 Pathologist provided ICD-10: N95.0 . 01 CPT . 409647, [id number] Specimen Comment: A courtesy copy of this report has been sent to [phone] Performed at: [address] [place] [address], [place], [place] [id number] MD Braden Childs MD Phone: [phone]
[2022-06-03] MEDS: LACTATED RINGERS 1,000 ML 42 ML IV ×2 (11:17→13:19)
--- NOTE | 2022-06-03 12:46 | PM.PREOP ---
Pre-operative Note COVID-19 COVID-19 status: Negative Criteria for continued procedure: Non-surgical alternatives not available or appropriate per current SOC Interval Note History & Physical reviewed/Exam performed by Physician: Yes Changes to H&P: No
--- NOTE | 2022-06-03 13:12 | SUR.OPER ---
Lithotomy on padded OR bed, head on pillow, arms secured on padded arm boards at <90 degrees abduction. Legs secured in padded yellow fins stirrups.
--- NOTE | 2022-06-03 13:29 | P.OP_ITS ---
Operative Date/Time/Diagnoses Date of procedure: 06/03/22 Time of procedure: 12:55 Pre-op diagnosis: Postmenopausal bleeding Endometrial thickening on ultrasound Post-op diagnosis: same Procedure & Clinicians Procedure: Procedures Operation Date: 06/03/22 12:45 Actual Procedure Side Surgeon p Hysteroscopy w. D&C of uterus Brian Qureshi MD Indications: Lashay is a 71-year-old G0, LMP at age 57 who presents for evaluation due to postmenopausal bleeding which began 04/08/2022.? Patient does not recall when she went through menarche but did have regular predictable periods throughout her reproductive life.? She stopped having menses at age 57 and has not had any postmenopausal spotting or bleeding up until an episode on the 08 April 2022 and subsequently several episodes of light spotting.? Patient is not taking HRT and has never taken HRT.? Pelvic ultrasound performed at [facility] in [place], [place] on 04/22/2022 showed the uterus to be 6.0 x 2.6 x 4.8 cm with the endometrium measuring up to 18 mm in combined thickness.? Fluid is noted in the cervix and there was a suspected nabothian cyst.? The right ovary is within normal limits for age in the left ovary was not well seen.? There was no pathological free fluid in the pelvis. Options for evaluating the cause of her postmenopausal bleeding and endometrial thickening discussed at length.? Patient would not be comfortable having an endometrial biopsy performed without sedation and we discussed the relative pros and cons of endometrial sampling versus hysteroscopy with D&C.? After discussion of all options and the pros and cons, the patient has decided to proceed with hysteroscopy with possible biopsies and dilation and curettage of the uterus.? She presents today for her scheduled surgery. Surgeon: Brian Qureshi Anesthesia Type: General Operative Notes Findings: Normal endometrial cavity without localized abnormality. Diffuse atrophic changes. Closure Type: not applicable Specimen(s): endometrial curettings and other (Endocervical curettings) Estimated blood loss (mL): 10 Blood products transfused: none Procedure in detail: With the patient under satisfactory general anesthesia in the modified dorsal lithotomy position, vagina, perineum, and lower abdomen were prepped and draped in the usual manner for hysteroscopy/D&C. A pre-surgical safety time-out was then taken accordance with [facility] Main OR protocols. A bivalve specu lum was then inserted in the vagina and the cervix visualized. The anterior lip of the cervix was grasped with single-tooth tenaculum. An os finder was then utilized to identify the tract of the endocervical canal and once identified, the endocervical canal was sequentially dilated to 7 mm in diameter with Hegar dilators. Hysteroscope was then introduced into the endometrial cavity with saline as a distention medium and the endometrial cavity as well as the endocervical canal were carefully inspected no abnormalities were noted. Fractional dilation and curettage of the uterus was accomplished with sharp curette and separate specimens were submitted for endometrial curettings and endocervical curettings. The single-tooth tenaculum was then removed from the anterior lip of the cervix and no significant bleeding was noted. The speculum was then removed from the vagina and procedure terminated. The patient was then awakened from anesthesia and transferred to PACU for a period of observation and recovery after having tolerated the procedure well. Complications: none Post-operative Condition: stable Disposition: PACU Plan for aftercare: Routine postoperative care with follow-up planned for 2 weeks postop.
[2022-06-03] MEDS: ACETAMINOPHEN 325 MG TABLET PO (13:54)
[2022-06-03] MEDS: fentaNYL 100 MCG/2 ML INJ IV (13:58)
== END 2022-06-03 14:38 | disposition home or self-care (01) ==
PROVIDERS: PCP Registered Nurse; Referring Provider Obstetrics & Gynecology; Visit Provider Obstetrics & Gynecology
PROC: 0UDB8ZZ Extraction of Endometrium, Via Natural or Artificial Opening Endoscopic (ICD-10-PCS; CPT 58558; principal; 2022-06-03 12:45)
DX: N95.0 Postmenopausal bleeding (principal); R93.89 Abnormal findings on diagnostic imaging of other specified body structures
CPT/HCPCS: 58558; J2405; J2704; J3010

== ENCOUNTER → 2023-10-13 13:08 | Outpatient (CLI) | payer MEDICARE, OTHER, SELFPAY ==
[2018-05-11 13:57] VITALS: BMI 41.7
--- NOTE | 2023-10-13 13:14 | DI.NM.S_ITS ---
PROCEDURE: NM CATRINA PERF SPECT R&S PHARM Rest and pharmacological stress myocardial perfusion SPECT with gated imaging and ejection fraction RADIOPHARMACEUTICAL: 26.6 mCi Tc-99m tetrafosmin IV at rest and 25.1 mCi Tc-99m tetrafosmin IV at peak effect of pharmacological stress. [id number] was performed. INDICATIONS: OTHER FORM OF DYSPNIA TECHNIQUE: Radiopharmaceutical was injected at peak stress test, and also at rest. SPECT images were obtained. SPECT myocardial perfusion images were displayed in short axis, horizontal long axis, and vertical long axis views. Gated images were reviewed using [employer] software. COMPARISON: None. CARDIAC STRESS: A pharmacologic stress test was performed under the supervision of an attending staff, using an infusion of regadenoson 0.4 mg IV. Hemodynamic data: There is normal blood pressure and heart rate response to pharmacologic stress. Symptoms: The patient denied anginal chest pain. EKG: No diagnostic changes of ischemia; no ectopy. FINDINGS: Raw data: There is good myocardial uptake of radiotracer. No significant motion artifacts. Ycfd-uv-jwrxh ratio is 0.28 (normal is less than 0.38 for tetrafosmin tracer). Left ventricle function: Gated images demonstrate normal left ventricular wall thickening. No segmental wall motion abnormalities. No transient ischemic dilation; TID is 0.87 (normal less than 1.3). Left ventricle resting end diastolic volume is 110 mL. Left ventricle stress ejection fraction is > 75%; normal range is above 45%. Myocardial perfusion: There is a medium sized, mild intensity fixed inferolateral wall defect. No reversible perfusion defects. IMPRESSION: Low risk study. No evidence of pharmacologic induced ischemia. The fixed inferolateral wall defect is occurring in the setting of normal wall motion and hyperdynamic LV function likely due to attenuation artifact however prior subendocardial infarct cannot be ruled out. Normal LV size. Dictated by: Marilynn Porter D.O. on 10/18/2023 at 15:59 Approved by: Marilynn Porter D.O. on 10/18/2023 at 16:02
[2023-10-13 14:19] LABS: Add Manual Diff / Slide Review NO; Basophils Absolute Auto 0 /uL (0-100); Eosinophils Absolute Auto 100 /uL (0-450); Eosinophils Percent Auto 2.2 % (2-4); Hematocrit 39.1 % (36-46); Lymphocytes Absolute Auto 1200 /uL (1100-4500); Lymphocytes Percent Auto 31.1 % (25-40); Mean Corpuscular HGB Conc 33.2 % (30-36); Mean Corpuscular Volume 93.2 fL (80-100); Monocytes Absolute Auto 300 /uL (0-900); Monocytes Percent Auto 8.1 % (3-14); Neutrophils Absolute Auto 2200 /uL (1500-7000); Neutrophils Percent Auto 57.6 % (50-75); Platelet Count 121 X10^3/uL (150-400); Red Blood Cell Count 4.19 X10^6/uL (4.0-5.2); Red Cell Distribution Width 13.7 % (11.6-14.8); White Blood Cell Count 3.8 X10^3/uL (4.5-11.0)
[2023-10-13 14:33] LABS: BUN Creatinine Ratio 23.6 (6-22); Blood Urea Nitrogen 25 mg/dL (7-17); Calcium 9.1 mg/dL (8.4-10.2); Carbon Dioxide 32 mmol/L (22-32); Chloride 106 mmol/L (98-107); Cholesterol 160 mg/dL (140-199); Estimated Glomerular Filt Rate 56 mL/min (>60); Glucose 91 mg/dL (80-110); HDL Cholesterol 76 mg/dL (40-60); HEMOLYSIS < 15 (0-50); LDL Cholesterol Calculated 72 mg/dL (<100); Potassium 4.5 mmol/L (3.4-5.1); Sodium 141 mmol/L (137-145); Triglycerides 58 mg/dL (35-150)
== END ==
LOC: NUCM 13:10
PROVIDERS: PCP Registered Nurse; Referring Provider Internal Medicine Cardiovascular Disease; Visit Provider Internal Medicine Cardiovascular Disease
DX: R06.09 Other forms of dyspnea (principal); Z00.00 Encounter for general adult medical examination without abnormal findings
CPT/HCPCS: 36415; 78452; 80048; 80061; 85025; 93017; A9502; J2785

== ENCOUNTER 2025-02-23 14:06 | Emergency (ER) | payer MEDICARE, OTHER, SELFPAY ==
[2018-05-11 13:57] VITALS: BMI 41.7
[2025-02-23] VITALS (33 sets, daily range): BP systolic 117–176; BP diastolic 56–73; PULSE 53–86; RESP 9–47; TEMP 35.9–36.8; O2SAT 93–100; BMI 35.5
--- NOTE | 2025-02-23 14:11 | DI.RAD.S_ITS ---
PROCEDURE: XR CHEST 1V INDICATIONS: Chest Pain TECHNIQUE: One view of the chest was acquired. COMPARISON: None. FINDINGS: Surgical changes and devices: None. Lungs and pleura: Lungs are clear. No pleural effusions or pneumothorax. Mediastinum: Mediastinal contours appear normal. Mild cardiomegaly. Bones and chest wall: No suspicious bony lesions. Overlying soft tissues appear unremarkable. IMPRESSION: No acute cardiopulmonary abnormality is seen. Dictated by: Juan A Rizvi M.D. on 02/23/2025 at 15:09 Approved by: Juan A Rizvi M.D. on 02/23/2025 at 15:09
--- NOTE | 2025-02-23 14:11 | EKG_ITS ---
[facility] [address] [place] [address] Test Date: 2025-02-23 Pat Name: Lashay Zamora Department: [facility] Room: Gender: Female Knobber: : 1950 Requested By: Order Number: [id number] Reading MD: Dwain Chávez MD Measurements Intervals Bartlett Rate: 73 P: TN: QRS: -37 QRSD: 104 T: 8 QT: 402 QTc: 442 Interpretive Statements Atrial fibrillation Left axis deviation NO PRIOR TRACING Electronically Signed On 03-09-2025 8:56:41 PST by Dwain Chávez MD
[2025-02-23 14:25] LABS: Add Manual Diff / Slide Review NO; Hematocrit 42.8 % (36-46); Hemoglobin 14.3 g/dL (12.0-16.0); Lymphocytes Absolute Auto 1400 /uL (1100-4500); Mean Corpuscular HGB Conc 33.5 % (30-36); Mean Corpuscular Hemoglobin 29.5 PG (26-34); Mean Corpuscular Volume 88.3 fL (80-100); Platelet Count 127 X10^3/uL (150-400)
[2025-02-23 14:35] LABS: INR 1.6 (0.9-1.3); Prothrombin Time 18.4 SECONDS (9.4-12.5)
[2025-02-23 14:38] LABS: PTT Partial Thromboplastin Tim 38 SECONDS (25.1-36.5)
[2025-02-23 14:40] LABS: Alanine Aminotransferase 18 IU/L (<35); Albumin 4.6 g/dL (3.5-5.0); Albumin Globulin Ratio 1.5 (1.0-2.8); Alkaline Phosphatase 48 U/L (38-126); Blood Urea Nitrogen 28 mg/dL (7-17); Calcium 9.1 mg/dL (8.4-10.2); Carbon Dioxide 27 mmol/L (22-32); Chloride 106 mmol/L (98-107); Creatine Kinase 58 U/L (30-135); Estimated Glomerular Filt Rate > 60 mL/min (>60); Globulin 3.1 g/dL (1.7-4.1); Glucose 94 mg/dL (70-99); Lipase 33 U/L (23-300); Magnesium 2.3 mg/dL (1.6-2.3); Sodium 139 mmol/L (137-145); Total Protein 7.7 g/dL (6.3-8.2)
[2025-02-23 14:43] LABS: HEMOLYSIS 160 (0-50)
[2025-02-23 14:44] LABS: Potassium 5.0 mmol/L (3.4-5.1)
[2025-02-23 14:51] LABS: NT-proBNP (BNP-Adult 18+) 1000 pg/mL (<125); Troponin I 0.019 ng/mL (0.01-0.034)
--- NOTE | 2025-02-23 15:11 | PC.NURSE ---
Pt presented with ~4days of A fib with some nausea and dizziness/brain fog. Pt reports hx of A fib and reports taking metoprolol, gabapentin, flecainide, and xarelto. Pt has bilateral shoulder pain that is worse on the R side but denies chest pain or SOB. Pt reports feeling more tired and uncomfortable than she has with previous episodes of A fib and was told by manager oracle to come to ER. Pt also reports HR is usually in the 40s but is currently resting in 60s.
--- NOTE | 2025-02-23 18:15 | ED_ITS ---
HPI - Arrhythmia/Palpitations <Silvia Jin MD - Last Filed: 02/23/25 19:50> General Chief Complaint: Arrhythmia/Palpitations Stated Complaint: In AVIB - needs to be cardio converted Time Seen by Provider: 02/23/25 14:29 Source: patient Mode of arrival: Family Vehicle History of Present Illness HPI narrative: Patient is a 74-year-old female with history of atrial fibrillation on Xarelto, metoprolol, flecainide. States that she has been intermittently in atrial fibrillation with palpitations and usually these episodes do not last more than 24 hours. States that she initially began having palpitations associated with head and neck pain 4 days prior and was evaluated would be health with evaluation including CTA of the head and neck which were reassuring and was discharged without medication management or cardioversion at that time. States that she has been having persistent atrial fibrillation. And this has been associated with shortness of breath and generalized fatigue. States that she had called her senior administrative assistant on the day of presentation and he recommended evaluation in the emergency department for possible cardioversion. complaint: palpitations Onset (ago): day(s) Duration: constant Context: occurred during rest Arrhythmia history: on anti-coagulants Related Data Home Medications ?Medication ?Instructions ?Recorded ?Confirmed MediHoney (shaina alginate-honey) 05/11/18 05/13/22 flecainide 50 mg tablet 50 mg PO Q12H 05/11/1806/02 gabapentin 300 mg capsule 300 mg PO BEDTIME 05/11/18 0 06/02/22 Previous Rx's ?Medication ?Instructions ?Recorded warfarin 10 mg tablet 5 mg (1/2 x 10 mg) PO DAILY #0 tabs 05/11/18 acetaminophen 325 mg tablet 975 mg (3 x 325 mg) PO TID #30 tabs 05/12/18 docusate sodium 100 mg capsule 100 mg PO BID #30 caps 05/12/18 ondansetron 4 mg disintegrating 4 mg PO Q4HR PRN Nause a And 05/12/18 tablet Vomiting #6 tabs warfarin 5 mg tablet (Coumadin) 5 mg PO 1700 #30 tabs 05/12/18 misoprostol 200 mcg tablet 600 mcg (3 x 200 mcg) PO ON CE #3 05/25/22 (Cytotec) tabs Allergies Allergy/AdvReac Type Severity Reaction Status Date / Time hydromorphone Allergy Unknown Unlisted Verified 02/23/25 14:22 Penicillins Allergy Unknown Unlisted Verified 02/23/25 14:22 <Pk Barnhart MD - Last Filed: 02/24/25 02:32> History of Present Illness HPI narrative: Patient is a 74-year-old female with history of atrial fibrillation on Xarelto, metoprolol, flecainide. States that she has been intermittently in atrial fibrillation with palpitations and usually these episodes do not last more than 24 hours. States that she initially began having palpitations associated with head and neck pain 4 days prior and was evaluated would be health with evaluation including CTA of the head and neck which were reassuring and was discharged without medication management or cardioversion at that time. States that she has been having persistent atrial fibrillation. And this has been associated with shortness of breath and generalized fatigue. States that she had called her senior administrative assistant on the day of presentation and he recommended evaluation in the emergency department for possible cardioversion. Airway assessed prior to start of procedure? [Y/N] Procedural Sedation Time of Procedure: 19:30 Consent Signed: y ASA Class:II Mallampati Airway Classification: I Time Out Performed: y Indication: symptomatic atrial fibrillation Preparation: yes Bedside and IV Secured: yes Fentanyl Dose (mcg): [] IV Propofol Dose (mg):40 ED Sedation Level: minimal sedation Patient Tolerated Procedure: yes Complications: none Review of Systems <Silvia Jin MD - Last Filed: 02/23/25 19:50> Constitutional Constitutional: Reports fatigue and Denies fever(s) Cardiovascular Cardiovascular: Denies chest pain, Reports irregular heart rhythm and Denies dyspnea Respiratory Respiratory: Denies dyspnea Gastrointestinal Gastrointestinal: Reports nausea Endocrine Endocrine: Reports fatigue Patient History <Silvia Jin MD - Last Filed: 02/23/25 19:50> Medical History Hearing loss ADHD Foot pain (~2017) Ankle pain (~2018) Atrial fibrillation (~2016) Ulceration (~05/10/18) Cellulitis Paroxysmal A-fib Abscess of bursa, left ankle and foot Nondisplaced fracture of lateral malleolus of left fibula Sprain of deltoid ligament of left ankle Sprain of other ligament of left ankle, subsequent encounter Surgical History Anesthesia History of ankle surgery (~2018) History of cholecystectomy (~1992) Social History household members: spouse Smoking Status: Never smoker alcohol intake: never Smoking Status: Never smoker Exam <Silvia Jin MD - Last Filed: 02/23/25 19:50> Narrative Exam Narrative: GENERAL: in no distress, not toxic not dyspneic HEAD: Normocephalic. EYES: Pupils equal round ENT: Mucous membranes moist. NECK: Trachea midline. CARDIOVASCULAR: Regular rate, irregular rhythm RESPIRATORY: Clear to auscultation. Breath sounds equal bilaterally. No wheezes, rales, or rhonchi. GASTROINTESTINAL: Abdomen soft, non-tender EXTREMITIES: No gross deformities. BACK: No flank tenderness. NEURO: AOx4. Clear speech SKIN: Warm and dry PSYCH: Not anxious, is cooperative Initial Vital Signs Initial Vital Signs: Vital Signs Temperature 96.7 F L 02/23/25 14:22 Pulse Rate 75 02/23/25 14:22 Respiratory Rate 18 02/23/25 14:22 Blood Pressure 140/73 02/23/25 14:22 Pulse Oximetry 97 02/23/25 14:22 Oxygen Delivery Method Room Air 02/23/25 14:22 Const General: cooperative Resp Effort & Inspection: normal respiratory effort Cardio Rhythm: abnormal rhythm Extrem General: No edema <Pk Barnhart MD - Last Filed: 02/24/25 02:32> Initial Vital Signs Initial Vital Signs: Vital Signs Temperature 96.7 F L 02/23/25 14:22 Pulse Rate 75 02/23/25 14:22 Respiratory Rate 18 02/23/25 14:22 Blood Pressure 140/73 02/23/25 14:22 Pulse Oximetry 97 02/23/25 14:22 Oxygen Delivery Method Room Air 02/23/25 14:22 Course <Silvia Jin MD - Last Filed: 02/23/25 19:50> Orders Ordered: Discontinued Medications Aspirin (Aspirin 81 Mg Chew Tab) 324 mg PO NOW ONE Stop: 02/23/25 14:12 Propofol (Propofol 200 Mg/20 Ml Vial) 105 mg 1 mg/kg (105 mg) IV NOW ONE Stop: 02/23/25 19:36 Last Admin: 02/23/25 20:02 Dose: 40 mg Documented By: LS Reevaluation(s) Reevaluation #1: Consultation with Dr. Iglesias from Cardiology, he recommends cardioversion given patient has been compliant with home Xarelto doses and agrees that EKG does appear to demonstrate atrial flutter at this time. Vital Signs Vital signs: Vital Signs - 8 hr 02/23/25 19:00 02/23/25 19:01 02/23/25 19:01 Temperature Pulse Rate 59 L 65 Respiratory Rate 15 9 L Blood Pressure 121/60 Pulse Oximetry 96 99 Oxygen Delivery Method Room Air Room Air 02/23/25 19:30 02/23/25 19:31 02/23/25 19:31 Temperature Pulse Rate 67 86 Respiratory Rate 15 17 Blood Pressure 137/63 Pulse Oximetry 98 97 Oxygen Delivery Method Room Air Room Air 02/23/25 19:48 02/23/25 19:48 02/23/25 19:50 Temperature 98.3 F Pulse Rate 70 66 Respiratory Rate 15 47 H Blood Pressure 151/67 H Pulse Oximetry 98 93 Oxygen Delivery Method Room Air 02/23/25 19:52 02/23/25 19:52 02/23/25 19:54 Temperature Pulse Rate 66 69 Respiratory Rate 11 L 18 Blood Pressure 146/67 H Pulse Oximetry 100 98 Oxygen Delivery Method 02/23/25 19:56 02/23/25 19:56 02/23/25 19:58 Temperature Pulse Rate 84 76 Respiratory Rate 15 13 Blood Pressure 176/73 H Pulse Oximetry 99 99 Oxygen Delivery Method 02/23/25 20:00 02/23/25 20:00 02/23/25 20:02 Temperature Pulse Rate 56 L 56 L Respiratory Rate 17 15 Blood Pressure 153/67 H Pulse Oximetry 95 95 Oxygen Delivery Method 02/23/25 20:04 02/23/25 20:04 02/23/25 20:06 Temperature Pulse Rate 57 L 56 L Respiratory Rate 13 11 L Blood Pressure 140/66 Pulse Oximetry 97 97 Oxygen Delivery Method 02/23/25 20:08 02/23/25 20:08 02/23/25 20:13 Temperature Pulse Rate 54 L 56 L Respiratory Rate 12 9 L Blood Pressure 125/58 L Pulse Oximetry 95 96 Oxygen Delivery Method Room Air 02/23/25 20:13 02/23/25 20:17 02/23/25 20:17 Temperature Pulse Rate 57 L Respiratory Rate 25 H Blood Pressure 139/65 125/59 L Pulse Oximetry 95 Oxygen Delivery Method Room Air 02/23/25 20:30 02/23/25 20:30 Temperature Pulse Rate 53 L Respiratory Rate 9 L Blood Pressure 117/56 L Pulse Oximetry 96 Oxygen Delivery Method Room Air <Pk Barnhart MD - Last Filed: 02/24/25 02:32> Orders Ordered: Discontinued Medications Aspirin (Aspirin 81 Mg Chew Tab) 324 mg PO NOW ONE Stop: 02/23/25 14:12 Propofol (Propofol 200 Mg/20 Ml Vial) 105 mg 1 mg/kg (105 mg) IV NOW ONE Stop: 02/23/25 19:36 Last Admin: 02/23/25 20:02 Dose: 40 mg Documented By: JESSICA Reevaluation(s) Reevaluation #2: Upon re-evaluation, patient remains in normal sinus rhythm. She no longer complains of any palpitations and is asymptomatic. Time: 21:03 Vital Signs Vital signs: Vital Signs - 8 hr 02/23/25 19:00 02/23/25 19:01 02/23/25 19:01 Temperature Pulse Rate 59 L 65 Respiratory Rate 15 9 L Blood Pressure 121/60 Pulse Oximetry 96 99 Oxygen Delivery Method Room Air Room Air 02/23/25 19:30 02/23/25 19:31 02/23/25 19:31 Temperature Pulse Rate 67 86 Respiratory Rate 15 17 Blood Pressure 137/63 Pulse Oximetry 98 97 Oxygen Delivery Method Room Air Room Air 02/23/25 19:48 02/23/25 19:48 02/23/25 19:50 Temperature 98.3 F Pulse Rate 70 66 Respiratory Rate 15 47 H Blood Pressure 151/67 H Pulse Oximetry 98 93 Oxygen Delivery Method Room Air 02/23/25 19:52 02/23/25 19:52 02/23/25 19:54 Temperature Pulse Rate 66 69 Respiratory Rate 11 L 18 Blood Pressure 146/67 H Pulse Oximetry 100 98 Oxygen Delivery Method 02/23/25 19:56 02/23/25 19:56 02/23/25 19:58 Temperature Pulse Rate 84 76 Respiratory Rate 15 13 Blood Pressure 176/73 H Pulse Oximetry 99 99 Oxygen Delivery Method 02/23/25 20:00 02/23/25 20:00 02/23/25 20:02 Temperature Pulse Rate 56 L 56 L Respiratory Rate 17 15 Blood Pressure 153/67 H Pulse Oximetry 95 95 Oxygen Delivery Method 02/23/25 20:04 02/23/25 20:04 02/23/25 20:06 Temperature Pulse Rate 57 L 56 L Respiratory Rate 13 11 L Blood Pressure 140/66 Pulse Oximetry 97 97 Oxygen Delivery Method 02/23/25 20:08 02/23/25 20:08 02/23/25 20:13 Temperature Pulse Rate 54 L 56 L Respiratory Rate 12 9 L Blood Pressure 125/58 L Pulse Oximetry 95 96 Oxygen Delivery Method Room Air 02/23/25 20:13 02/23/25 20:17 02/23/25 20:17 Temperature Pulse Rate 57 L Respiratory Rate 25 H Blood Pressure 139/65 125/59 L Pulse Oximetry 95 Oxygen Delivery Method Room Air 02/23/25 20:30 02/23/25 20:30 Temperature Pulse Rate 53 L Respiratory Rate 9 L Blood Pressure 117/56 L Pulse Oximetry 96 Oxygen Delivery Method Room Air MDM - Arrhythmia/Palpitations <Silvia Jin MD - Last Filed: 02/23/25 19:50> Differential Diagnosis Differential diagnosis: Likely palpitations, artial fibrillation, artial flutter and other (Anemia, CHF, ACS) Medical Records Attestation: I reviewed the patient's medical records. Lab Data Attestation: I reviewed the patient's lab results. 02/23/25 14:14 02/23/25 14:14 Labs: Lab Results 02/23/25 Range/Units 14:14 WBC 4.0 L (4.5-11.0) X10^3/uL RBC 4.85 (4.0-5.2) X10^6/uL Hgb 14.3 (12.0-16.0) g/dL Hct 42.8 (36-46) % MCV 88.3 (80-100) fL MCH 29.5 (26-34) PG MCHC 33.5 (30-36) % RDW 14.4 (11.6-14.8) % Plt Count 127 L (150-400) X10^3/uL Neut % (Auto) 53.3 (50-75) % Lymph % (Auto) 33.4 (25-40) % Louisa % (Auto) 10.1 (3-14) % Eos % (Auto) 2.4 (2-4) % Baso % (Auto) 0.8 (0-2) % Neut # (Auto) 2200 (6419-1355) /uL Lymph # (Auto) 1400 (8348-9729) /uL Louisa # (Auto) 400 (0-900) /uL Eos # (Auto) 100 (0-450) /uL Baso # (Auto) 0 (0-100) /uL PT 18.4 H (9.4-12.5) SECONDS INR 1.6 H (0.9-1.3) APTT 38 H (25.1-36.5) SECONDS Sodium 139 (137-145) mmol/L Potassium 5.0 (3.4-5.1) mmol/L Chloride 106 (98-107) mmol/L Carbon Dioxide 27 (22-32) mmol/L BUN 28 H (7-17) mg/dL Creatinine 0.98 (0.52-1.04) mg/dL Estimated GFR > 60 (>60) mL/min BUN/Creatinine Ratio 28.6 H (6-22) Glucose 94 (70-99) mg/dL Calcium 9.1 (8.4-10.2) mg/dL Magnesium 2.3 (1.6-2.3) mg/dL Total Bilirubin 1.3 (0.2-1.3) mg/dL AST 41 H (14-36) IU/L ALT 18 (<35) IU/L Alkaline Phosphatase 48 (38-126) U/L Total Creatine Kinase 58 (30-135) U/L Troponin I 0.019 (0.01-0.034) ng/mL NT-Pro-B Natriuret Pep 1000 H (<125) pg/mL Total Protein 7.7 (6.3-8.2) g/dL Albumin 4.6 (3.5-5.0) g/dL Globulin 3.1 (1.7-4.1) g/dL Albumin/Globulin Ratio 1.5 (1.0-2.8) Lipase 33 (23-300) U/L Point of Care Testing Test Results Not applicable ECG Data Attestation: I personally reviewed and interpreted this ECG as follows: Interpretation: EKG demonstrating atrial flutter with variable conduction at a rate of 73, QTC 442, without evidence of acute ischemic changes on independent review, without prior for comparison MDM Narrative Medical decision making narrative: History and exam as above. Patient presenting with palpitations and atrial flutter. Differential for presentation includes underlying electrolyte abnormality, ACS, heart failure, no reported infectious symptoms to suggest underlying infectious trigger for persistent palpitations. In the setting of patient's persistent arrhythmia may represent underlying cardiac injury or abnormality. Overall exam is reassuring and patient with reassuring rate and blood pressure here. We will plan for evaluation with EKG, labs, and cardiology consultation. <Pk Barnhart MD - Last Filed: 02/24/25 02:32> Lab Data Labs: Lab Results 02/23/25 Range/Units 14:14 WBC 4.0 L (4.5-11.0) X10^3/uL RBC 4.85 (4.0-5.2) X10^6/uL Hgb 14.3 (12.0-16.0) g/dL Hct 42.8 (36-46) % MCV 88.3 (80-100) fL MCH 29.5 (26-34) PG MCHC 33.5 (30-36) % RDW 14.4 (11.6-14.8) % Plt Count 127 L (150-400) X10^3/uL Neut % (Auto) 53.3 (50-75) % Lymph % (Auto) 33.4 (25-40) % Louisa % (Auto) 10.1 (3-14) % Eos % (Auto) 2.4 (2-4) % Baso % (Auto) 0.8 (0-2) % Neut # (Auto) 2200 (9863-6222) /uL Lymph # (Auto) 1400 (3084-4655) /uL Louisa # (Auto) 400 (0-900) /uL Eos # (Auto) 100 (0-450) /uL Baso # (Auto) 0 (0-100) /uL PT 18.4 H (9.4-12.5) SECONDS INR 1.6 H (0.9-1.3) APTT 38 H (25.1-36.5) SECONDS Sodium 139 (137-145) mmol/L Potassium 5.0 (3.4-5.1) mmol/L Chloride 106 (98-107) mmol/L Carbon Dioxide 27 (22-32) mmol/L BUN 28 H (7-17) mg/dL Creatinine 0.98 (0.52-1.04) mg/dL Estimated GFR > 60 (>60) mL/min BUN/Creatinine Ratio 28.6 H (6-22) Glucose 94 (70-99) mg/dL Calcium 9.1 (8.4-10.2) mg/dL Magnesium 2.3 (1.6-2.3) mg/dL Total Bilirubin 1.3 (0.2-1.3) mg/dL AST 41 H (14-36) IU/L ALT 18 (<35) IU/L Alkaline Phosphatase 48 (38-126) U/L Total Creatine Kinase 58 (30-135) U/L Troponin I 0.019 (0.01-0.034) ng/mL NT-Pro-B Natriuret Pep 1000 H (<125) pg/mL Total Protein 7.7 (6.3-8.2) g/dL Albumin 4.6 (3.5-5.0) g/dL Globulin 3.1 (1.7-4.1) g/dL Albumin/Globulin Ratio 1.5 (1.0-2.8) Lipase 33 (23-300) U/L Point of Care Testing Test Results Not applicable MDM Narrative Medical decision making narrative: History and exam as above. Patient presenting with palpitations and atrial flutter. Differential for presentation includes underlying electrolyte abnormality, ACS, heart failure, no reported infectious symptoms to suggest underlying infectious trigger for persistent palpitations. In the setting of patient's persistent arrhythmia may represent underlying cardiac injury or abnormality. Overall exam is reassuring and patient with reassuring rate and blood pressure here. We will plan for evaluation with EKG, labs, and cardiology consultation. signout received from Dr. Jin, following recommendations, successful electrical cardioversion was done for the patient. Patient stayed in normal sinus rhythm without any complications. Patient is ready to be discharged and follow up with Cardiology. Discharge Plan Departure Patient Disposition: Home Clinical Impression: Atrial fibrillation Instructions: DI for Atrial Fibrillation Activity Restrictions/Additional Instructions: Follow up with Cardiology and potentially electrophysio cardiolgy for further potential intervention. Continued to stay on anticoagulant and can come sooner to ER if needed for new symptoms or worsening symptoms. Prescriptions: No Action misoprostol [Cytotec] 200 mcg tablet 600 mcg PO ONCE Qty: 3 0RF Rx Instructions: Dissolve three tablets between cheeks and gums 2-3 hours prior to scheduled procedure. flecainide 50 mg Tablet 50 mg PO Q12H gabapentin 300 mg Capsule 300 mg PO BEDTIME Patient Comments: has not started yet (DME) [facility] (shaina alginate-honey) warfarin 10 mg Tablet 5 mg PO DAILY Qty: 0 0RF acetaminophen 325 mg Tablet 975 mg PO TID Qty: 30 0RF docusate sodium 100 mg Capsule 100 mg PO BID Qty: 30 0RF ondansetron 4 mg Tablet,Disintegrating 4 mg PO Q4HR PRN (Reason: Nausea And Vomiting) Qty: 6 0RF warfarin [Coumadin] 5 mg Tablet 5 mg PO 1700 Qty: 30 0RF Referrals: Esperanza Pederson ARNP [Primary Care Provider, Medical] Stand Alone Forms: Patient Portal/API
--- NOTE | 2025-02-23 19:10 | PC.NURSE ---
Pt awake and alert lying in ED stretcher speaking with partner and engages with RN appropriately upon entering exam room. Pt noted to be in a-fib with rate from 60-75. No distress noted. Pt states she feels the flutter but no other symptoms. Continued plan of care discussed. Warm blankets provided. No requests or concerns at this time. Pt remains connected to cardiac, resp, blood pressure, and pulse ox monitors with alarms on and audible. Defibrillator at bedside with pads attached appropriately to patient, not currently powered on. Call light within reach. Partner remains at bedside.
--- NOTE | 2025-02-23 21:01 | PC.NURSE ---
Pt ambulatory to restroom without difficulty or assistance with 1 person standby. Taking po fluids well at this time. Dr. Barnhart aware and at bedside for reevaluation.
== END 2025-02-23 21:10 | disposition home or self-care (01) ==
PROVIDERS: Student in an Organized Health Care Education/Training Program; Emergency Provider Family Medicine; PCP Registered Nurse
DX: I48.91 Unspecified atrial fibrillation (principal); R06.02 Shortness of breath; R53.83 Other fatigue; Z79.01 Long term (current) use of anticoagulants
CPT/HCPCS: 36415; 71045; 80053; 82550; 83690; 83735; 83880; 84484; 85025; 85610; 85730; 92960; 93005; 99285; J2704